=== PATIENT | male | born 1930 | race African-American/Black ===

== ENCOUNTER → 2019-12-04 | Outpatient (CLI) | payer OTHER | LOC: SJCVCIMAG 15:17 | DX: I70.293 Other atherosclerosis of native arteries of extremities, bilateral legs (principal) ==

== ENCOUNTER → 2019-12-12 | Outpatient (CLI) | payer OTHER ==
[~2019-12-12] MED LIST: DOXAZOSIN MESYLA4 MG PO; IRON325 M1 PO; LOTREL 10-40 M1 EACH PO; PIOGLITAZONE15 MG; PLAVIX 75 MG TA75 MG PO; PROTONIX 20 MG20 MG PO; SYNTHROID112 MC1 PO
== END ==
LOC: SJCVC 09:18
DX: I73.9 Peripheral vascular disease, unspecified (principal); I10 Essential (primary) hypertension; E11.9 Type 2 diabetes mellitus without complications; R09.89 Other specified symptoms and signs involving the circulatory and respiratory systems; R52 Pain, unspecified

== ENCOUNTER 2019-12-20 10:56 | Observation (INO) | payer OTHER ==
[2019-12-20] VITALS (9 sets, daily range): BP systolic 140–170; BP diastolic 68–89
[~2019-12-20] VITALS: Ht 22.9 cm; Wt 84.4 kg
[2019-12-20 11:53] LABS: HEMATOCRIT 39.3 % (42.0-52.0); HEMOGLOBIN 12.8 gm/dL (14.0-18.0); MCH 26.3 pg (26.0-34.0); MCHC 32.5 g/dL (28.0-37.0); MCV 80.7 fL (80.0-100.0); RBC 4.87 mil/uL (4.50-6.00); RDW 14.9 % (10.5-14.5); WBC 5.1 thou/uL (4.0-11.0)
[2019-12-20 11:58] LABS: CALCIUM 9.2 mg/dL (8.5-10.1); CREATININE 1.1 mg/dL (0.7-1.3); POTASSIUM 4.3 mmol/L (3.5-5.1)
[2019-12-20] MEDS ORDERED: LOTREL 10-40 M1 EACH PO (11:58)
[2019-12-20] MEDS ORDERED: DOXAZOSIN MESYLA4 MG PO (11:59)
[2019-12-20] MEDS ORDERED: IRON325 M1 PO (12:00)
[2019-12-20] MEDS ORDERED: SYNTHROID112 MC1 PO (12:01)
[2019-12-20] MEDS ORDERED: PROTONIX 20 MG20 MG PO (12:02)
[2019-12-20] MEDS ORDERED: PIOGLITAZONE15 MG (12:03)
[2019-12-20 12:04] LABS: ALBUMIN 3.8 g/dL (3.4-5.0); TOTAL BILIRUBIN 0.3 mg/dL (<0.1-1.0); TOTAL PROTEIN 7.3 g/dL (6.4-8.2)
[2019-12-20] MEDS ORDERED: PLAVIX 75 MG TA75 MG PO (15:24)
--- NOTE | 2019-12-20 19:05 | NUR ---
POST IR PATIENT FOR LASERED RIGHT LE. GROIN SITE REMAINS C/D/I DURING OBSERVATION STAY. PT ALERT X4, FROM HOME WITH . POST CATH CARE WITH VS. FLUIDS ADMINISTERED PER RAFAT. REVIEWED PAST GROIN SITE CARE. AND DC ORDERS.PT DC HOME WITH AT 1830/
== END 2019-12-20 18:30 | disposition home or self-care (01) ==
LOC: CATH 10:56 → 2N 16:10
PROVIDERS: ADMIT Nuclear Medicine Nuclear Cardiology
DX: I70.1 Atherosclerosis of renal artery (principal)

== ENCOUNTER → 2020-03-27 | Outpatient (CLI) | payer OTHER | LOC: SJCVCIMAG 14:04 | PROVIDERS: ATTEND Nuclear Medicine Nuclear Cardiology | DX: I65.23 Occlusion and stenosis of bilateral carotid arteries (principal); I70.201 Unspecified atherosclerosis of native arteries of extremities, right leg; I10 Essential (primary) hypertension; E11.9 Type 2 diabetes mellitus without complications; Z82.49 Family history of ischemic heart disease and other diseases of the circulatory system; Z87.891 Personal history of nicotine dependence ==

== ENCOUNTER → 2020-06-19 | Outpatient (CLI) | payer OTHER | LOC: SJCVC 09:28 | PROVIDERS: ATTEND Internal Medicine | DX: R00.2 Palpitations (principal); I10 Essential (primary) hypertension; I73.9 Peripheral vascular disease, unspecified; I65.29 Occlusion and stenosis of unspecified carotid artery; E03.9 Hypothyroidism, unspecified; Z79.899 Other long term (current) drug therapy ==

== ENCOUNTER → 2020-07-01 | Outpatient (CLI) | payer OTHER | LOC: SJCVCIMAG 06-28 09:18 | PROVIDERS: ATTEND Internal Medicine | DX: I34.0 Nonrheumatic mitral (valve) insufficiency (principal); I10 Essential (primary) hypertension ==

== ENCOUNTER → 2020-07-05 | Outpatient (CLI) | payer OTHER | LOC: SJCVC 09:54 | PROVIDERS: ATTEND Internal Medicine | DX: R00.2 Palpitations (principal); I47.1 Supraventricular tachycardia; E78.5 Hyperlipidemia, unspecified; I10 Essential (primary) hypertension; E03.9 Hypothyroidism, unspecified; E11.9 Type 2 diabetes mellitus without complications; I73.9 Peripheral vascular disease, unspecified; I65.23 Occlusion and stenosis of bilateral carotid arteries; Z82.49 Family history of ischemic heart disease and other diseases of the circulatory system; Z79.84 Long term (current) use of oral hypoglycemic drugs; Z79.82 Long term (current) use of aspirin; Z79.899 Other long term (current) drug therapy; Z87.891 Personal history of nicotine dependence ==

== ENCOUNTER → 2020-08-02 | Outpatient (CLI) | payer OTHER | LOC: SJCVC 15:10 | PROVIDERS: ATTEND Internal Medicine | DX: R00.2 Palpitations (principal); E11.9 Type 2 diabetes mellitus without complications; E78.2 Mixed hyperlipidemia ==

== ENCOUNTER → 2021-03-06 | Outpatient (CLI) | payer OTHER | LOC: SJCVC 15:23 | PROVIDERS: ATTEND Internal Medicine | DX: R00.2 Palpitations (principal); I10 Essential (primary) hypertension; E78.5 Hyperlipidemia, unspecified; E11.51 Type 2 diabetes mellitus with diabetic peripheral angiopathy without gangrene; R07.9 Chest pain, unspecified; I70.201 Unspecified atherosclerosis of native arteries of extremities, right leg; E03.9 Hypothyroidism, unspecified; I65.29 Occlusion and stenosis of unspecified carotid artery; Z79.84 Long term (current) use of oral hypoglycemic drugs; Z79.899 Other long term (current) drug therapy; Z87.891 Personal history of nicotine dependence; Z82.49 Family history of ischemic heart disease and other diseases of the circulatory system ==

== ENCOUNTER → 2021-03-18 | Outpatient (CLI) | payer OTHER ==
[~2021-03-18] MED LIST changes: +ASA81BEC PO; +FOLIC ACID1 MG PO; +METFORMIN HCL500 M3 PO; +TOPROL XL50 MG PO
== END ==
LOC: SJCVCIMAG 08:50
PROVIDERS: ATTEND Internal Medicine
DX: I49.3 Ventricular premature depolarization (principal); R07.9 Chest pain, unspecified; I47.1 Supraventricular tachycardia; R06.00 Dyspnea, unspecified; R53.83 Other fatigue; I25.89 Other forms of chronic ischemic heart disease; R00.2 Palpitations; I10 Essential (primary) hypertension; E03.9 Hypothyroidism, unspecified; E78.5 Hyperlipidemia, unspecified; I73.9 Peripheral vascular disease, unspecified; E11.51 Type 2 diabetes mellitus with diabetic peripheral angiopathy without gangrene; Z79.82 Long term (current) use of aspirin; Z79.84 Long term (current) use of oral hypoglycemic drugs; Z79.899 Other long term (current) drug therapy; Z87.891 Personal history of nicotine dependence; Z82.49 Family history of ischemic heart disease and other diseases of the circulatory system

== ENCOUNTER → 2021-03-19 | Outpatient (CLI) | payer OTHER ==
[~2021-03-19] VITALS: Ht 175.3 cm; Wt 84.4 kg
[2021-03-19 07:59] VITALS: BP 174/79
--- NOTE | 2021-03-19 13:35 | CATHLAB ---
[facility] [place] [address] INVASIVE PROCEDURE REPORT Name: ERINRYAN [id number] Admission: 03/19/21 Attend Phys: Kenney Fernandez MD, Discharge: Date of : 34 Report #: [id number] THIS REPORT FOR: cc: Sunny Machado MD, Michael D. MD Park, Jin S. MD ~ APPROVED REPORT Study performed: 03/19/2021 11:48:54 Patient Details Patient Status: Out-Patient Room #: The patient is a 89 year-old male Event Personnel Mina Barry Watershed Tender, Irena Moran RTR Louie Calhoun Roberta Monitor, Jones, Jessica RN microsoft bi developer Performed Art Access - R femoral artery* Left Heart Cath w/or w/o Coronaries [id number] [facility] Hemostasis with Manual pressure 61705 Initial Mod Sed Same Phys/QHP Gr5y [id number] 03508 Mod Sed Same Phys/QHP Ea 579617 Indication Dyspnea, Positive stress test, Chest pain Risk Factors Hypercholesterolemia, Hypertension, Diabetes Procedure Narrative The Right Groin^ was infiltrated with 1% Lidocaine subcutaneous anesthesia. A PINNACLE 4FR Sheath #[id number] sheath was inserted into the RFA 4F^. Coronary angiography was performed using coronary diagnostic catheters. The right coronary system was accessed and visualized with a JR4 catheter. The left coronary system was accessed and visualized with a JL4 catheter. The left ventricle was accessed and visualized with a ANGLE PIG catheter. Left ventriculogram was performed in 30 degree projection. Hemostasis was obtained with manual pressure following sheath removal without any complications. Intraoperative Conscious Sedation Sedation start time: 1210 Case end Time: [facility] [address] [place] [address] INVASIVE PROCEDURE REPORT Name: RYAN KHAN Room #: REG CL [facility]#: [id number] Admission: 03/19/21 Attend Phys: Kenney Fernandez, Discharge: Date of : 34 Report #: [id number] Fentanyl 50 mcg Versed 1 mg Fluoro Time: 3.40 minutes Dose: DAP 6268.70 cGycm2 927 mGy Contrast Type and Amount: Omnipaque 75 ml Coronary Angiography The patient's coronary anatomy is right dominant. Diagnostic Cath Left Main The left main artery is a large-caliber vessel with a severe ostial stenosis, 60%. LAD The LAD is a moderate-sized caliber vessel, traverses the anterior wall and wraps around the apex. There is a severe occlusion in the proximal segment, 80%. Diagonal 1 This is a moderate-sized caliber vessel with mild plaquing in the proximal segment. Diagonal 2 This is a small to moderate-sized caliber vessel with a severe proximal occlusion, 80%. Diagonal 3 This is a moderate-sized caliber vessel with mild plaquing in the proximal segment. Circumflex This is a moderate-sized caliber vessel with mild plaquing in the proximal segment. OM1 This is a moderate-sized caliber vessel with a borderline stenosis in the proximal segment, 60%. Right Coronary The RCA is a dominant vessel with a severe stenosis at the ostium, 70%. R PDA This is a moderate-sized caliber vessel, patent with no flow-limiting lesions. RPLV This is a moderate-sized caliber vessel, patent with no flow-limiting lesions. Left Ventriculography The left ventricle is normal in size with normal contractility. The left ventricular ejection fraction is estimated to be 65%. Hemodynamics The aortic pressure is 205/94 mmHg with a mean of 98 mmHg. The left ventricular pressure is 195/6 mmHg with a mean of mmHg. The left ventricular end diastolic pressure is 18 mmHg. Conclusion 1. Severe left main and multivessel disease. 2. There is normal LV systolic function. [facility] [address] [place] [address] INVASIVE PROCEDURE REPORT Name: RYAN KHAN Room #: REG CL [facility]#: [id number] Admission: 03/19/21 Attend Phys: Kenney Fernandez, Discharge: Date of : 34 Report #: [id number] 3. This is a right dominant system. 4. Recommend CV surgical consultation and aggressive risk factor management. <ELECTRONICALLY SIGNED> By: Mina Barry MD 03/19/211334 34 34 Mina Barry MD /JOHNSON
[2021-03-19 15:16] LABS: URINE BILIRUBIN NEGATIVE (Negative); URINE BLOOD NEGATIVE (Negative); URINE CLARITY CLEAR; URINE COLOR YELLOW; URINE GLUCOSE-RANDOM* NEGATIVE (Negative); URINE KETONES NEGATIVE (Negative); URINE LEUKOCYTES-REFLEX NEGATIVE (Negative); URINE NITRITE-REFLEX NEGATIVE (Negative); URINE PROTEIN (DIPSTICK) NEGATIVE (Negative); URINE UROBILINOGEN 0.2 E.U./dl (0.2-1.0)
[2021-03-19 15:21] LABS: CALCIUM 7.9 mg/dL (8.5-10.1); CREATININE 1.1 mg/dL (0.7-1.3); POTASSIUM 3.7 mmol/L (3.5-5.1)
[2021-03-19 15:26] LABS: TOTAL BILIRUBIN 0.3 mg/dL (0.2-1.0); TOTAL PROTEIN 6.4 g/dL (6.4-8.2)
--- NOTE | 2021-03-20 08:22 | EKG ---
[place] [address] [facility] [place] [address] ELECTROCARDIOGRAM REPORT Name: RYAN KHAN [facility] [id number] Admission: 03/19/21 Attend Phys: Kenney Fernandez MD, Discharge: Date of : 32 Report #: [id number] [facility] Test Date: 2021-03-19 Test Time: 08:59:21 Pat Name: RYAN KHAN Department: Room: Gender: Financial [employer]ations Representative: SBROSA : 1930 Requested By: Mina Barry Order Number: [id number] MD: Kenney Fernandez Measurements Intervals Osgood Rate: 67 P: 0 VA: 233 QRS: 18 QRSD: 87 T: 53 QT: 397 QTc: 419 Interpretive Statements Sinus rhythm Prolonged VA interval Abnormal R-wave progression, early transition No previous ECG available for comparison Electronically Signed On 03-20-2021 7:00:49 CDT by Kenney Fernandez [email or web address] <ELECTRONICALLY SIGNED> By: Kenney Fernandez MD, [facility] 03/20/21 0700 [id number] Kenney Fernandez MD, FACC /EPI
--- NOTE | 2021-03-20 16:12 | HC ---
[facility] [place] [address] CONSULTATION Name: [facility]YAN KHAN [id number] Admission: 03/19/21 Attend Phys: Kenney Fernandez MD, Discharge: Date of : 32 Report #: [id number] THIS REPORT FOR: cc: Sunny Machado MD, Michael D. MD Forman, John M. MD ~ DOC #: [id number] Demario Weeks MD DATE OF SERVICE: 03/19/2021 DATE OF CONSULTATION: 03/19/2021. REASON FOR CONSULTATION: We were asked by Dr. Barry to see the patient. HISTORY OF PRESENT ILLNESS: The patient is an 89-year-old with angina. The patient notes that he has had chest pressure in the mid retrosternal area. This is new and it happens either with exertion or at rest. Nuclear stress test done on 03/18/2021 showed evidence for a moderate reversible anteroseptal defect, preserved ejection fraction of 55%. Cardiac catheterization today by Dr. Barry revealed important coronary artery disease. There is a 60% ostial left main, along with an 80% LAD lesion, 60% lesion in a diagonal and marginal and ostial 70% right coronary stenosis. PAST HISTORY: Significant for diabetes mellitus, hypertension, and dyslipidemia. The patient also has a history of peripheral vascular disease. MEDICATIONS: At home includes amlodipine, benazepril, doxazosin, iron, folic acid, levothyroxine, metformin, pantoprazole, pioglitazone. ALLERGIES: None known. SOCIAL HISTORY: The patient lives in the area of the [facility]. He is and still works (at [employer]). No smoking since 1959. REVIEW OF SYSTEMS: GENERAL: No recent weight change. EYES: No vision change. ENT: No hearing problems, no sinus problems. RESPIRATORY: Denies cough, shortness of breath. CARDIAC: As mentioned, chest pain with exertion and at rest. No palpitations. GASTROINTESTINAL: No nausea, vomiting, diarrhea or blood. GENITOURINARY: No urgency, frequency, blood. MUSCULOSKELETAL: No bone or joint pain. SKIN: No rash or infection. NEUROLOGIC: No motor or sensory problems. [facility] [address] [place] [address] CONSULTATION Name: RYAN KHAN [facility] [id number] Admission: 03/19/21 Attend Phys: Kenney Fernandez MD, Discharge: Date of : 34 Report #: [id number] HEMATOLOGIC: No bruisability or bleeding. ENDOCRINE: No goiter, no tremor. PHYSICAL EXAMINATION: GENERAL: The patient is lying in bed, status post cardiac catheterization. HEENT: No icterus. Mild arcus. NECK: No mass, no bruit. CHEST: Clear to auscultation. HEART: Rhythm regular, no murmur. ABDOMEN: Soft, no mass. EXTREMITIES: No clubbing, cyanosis or edema. SKIN: No rash or infection. MUSCULOSKELETAL: No bone or joint asymmetry or deformity. PSYCHIATRIC: Oriented, pleasant fellow, positive outlook. VITAL SIGNS: Temperature 36.3, heart rate 64, respiratory rate 16, blood pressure 174/79, O2 sat 100 on room air. ASSESSMENT AND PLAN: The patient has important ostial left main and right coronary stenosis along with a high-grade mid LAD lesion. Left ventricular function appears satisfactory and the patient has diabetes mellitus. I have discussed the case with Dr. Barry. The targets for distal bypass are satisfactory and the patient despite his advanced age, appears to be a good candidate. We will add the precaution of checking a CT scan of the chest to assess the great vessels for calcification. I Discussed risks and details of coronary artery bypass surgery with the patient and his family. Risks include but are not limited to bleeding, infection, anesthesia risks, heart and lung problems, stroke and . The patient understands all of this and wishes to proceed. Options and alternatives were discussed. It is a privilege to participate in this nice fellow's care. Thank you for the consult. Demario Weeks MD JF/FIDELINA <ELECTRONICALLY SIGNED> By: Demario Weeks MD 03/20/21 1612 1543 0119 Demario Weeks MD /nt
== END | disposition home or self-care (01) ==
LOC: CATH 06:24
PROVIDERS: Physician Assistant; Surgery Vascular Surgery; ATTEND Internal Medicine
DX: R07.9 Chest pain, unspecified (principal); R94.39 Abnormal result of other cardiovascular function study; I25.10 Atherosclerotic heart disease of native coronary artery without angina pectoris; I10 Essential (primary) hypertension; E78.5 Hyperlipidemia, unspecified; E11.9 Type 2 diabetes mellitus without complications; E07.9 Disorder of thyroid, unspecified; I73.9 Peripheral vascular disease, unspecified; K21.9 Gastro-esophageal reflux disease without esophagitis; Z98.890 Other specified postprocedural states; Z79.899 Other long term (current) drug therapy; Z79.4 Long term (current) use of insulin; Z87.891 Personal history of nicotine dependence; Z79.82 Long term (current) use of aspirin; Z01.810 Encounter for preprocedural cardiovascular examination